=== PATIENT | female | born 1990 | race Caucasian/White ===

== ENCOUNTER 2016-12-20 11:50 | Emergency (ER) | payer SELFPAY ==
[2016-12-20 12:05] VITALS: BP 94/55
[2016-12-20] MEDS ORDERED: BENZONATATE 100 MG CAPSULE PO ONE (12:33)
--- NOTE | 2016-12-20 12:36 | ER Document Report ---
HPI - HPI Patient complains to provider of: Toothache Onset: Other - see note Pain Level: 3 Associated Symptoms: Headache. denies: Allergy/hay fever, Body/muscle aches, Chest pain, Chills, Nonproductive cough, Productive cough, Diarrhea, Drooling, Earache, Fever, Hoarseness, Hurts to breath, Leg swelling, Nausea, Vomiting, Rhinnorhea, Sinus pain/drainage, Shortness of breath, Slow to respond, Sore throat, Sweating, Weakness, Other Exacerbated by: Denies Relieved by: Denies - otc without any help Similar symptoms previously: Yes Recently seen / treated by doctor: No Notes: Patient with a history of poor dentition comes the ED complaining of right upper tooth pain 1 month, but worsening since this morning. Patient states that she also has a headache because of the dental pain. Patient states that the pain does not radiate otherwise. She still eating and drinking without any difficulties. Patient states that she does have dentures as well. Patient is scheduled in December for a dental appointment. Patient admits to smoking but denies any other illicit drugs. Denies any past medical history otherwise. Denies any . - ROS Notes: REVIEW OF SYSTEMS: CONSTITUTIONAL : Denies fever, chills, or sweats. Denies recent illness. EENT: Denies eye, ear, throat, pain or symptoms. Denies nasal or sinus congestion or discharge. Denies throat, tongue, or mouth swelling or difficulty swallowing. SEE HPI. CARDIOVASCULAR: Denies chest pain. Denies palpitations or racing or irregular heart beat. Denies ankle edema. RESPIRATORY: Denies cough, cold, or chest congestion. Denies shortness of breath, difficulty breathing, or wheezing. GASTROINTESTINAL: Denies abdominal pain or distention. Denies nausea, vomiting , or diarrhea. Denies blood in vomitus, stools, or per rectum. Denies black, tarry stools. Denies constipation. GENITOURINARY: Denies difficulty urinating, painful urination, burning, frequency, blood in urine, or discharge. MUSCULOSKELETAL: Denies back or neck pain or stiffness. Denies joint pain or swelling. SKIN: Denies rash, lesions or sores. NEUROLOGICAL: Denies confusion or altered mental status. Denies passing out or loss of consciousness. Denies dizziness or lightheadedness. Denies headache. Denies weakness or paralysis or loss of use of either side. Denies problems with gait or speech. Denies sensory loss, numbness, or tingling. ALL OTHER SYSTEMS REVIEWED AND NEGATIVE. Dictation was performed using [employer] voice recognition software - REPRODUCTIVE Reproductive: DENIES: : - DERM Skin Color: Normal Past Medical History - Social History Smoking Status: Current Every Day Smoker Family History: Reviewed & Not Pertinent, Hypertension Neurological Medical History: Reports: Hx Seizures Renal/ Medical History: Reports: Hx Ectopic . Denies: Hx Peritoneal Dialysis Psychiatric Medical History: Reports: Hx Anxiety, Hx Bipolar Disorder, Hx Depression Past Surgical History: Reports: Hx Abdominal Surgery - left tube removed, tubal pregancy, Hx Gynecologic Surgery - ectopic , LEFT SALPINGECTOMY, Hx Tubal Ligation. Denies: Hx Hysterectomy - Immunizations Immunizations up to date: No Hx Diphtheria, Pertussis, Tetanus Vaccination: Yes - 2012 Vertical Provider Document - CONSTITUTIONAL Agree With Documented VS: Yes Notes: PHYSICAL EXAMINATION: GENERAL: Well-appearing, well-nourished and in no acute distress. HEAD: Atraumatic, normocephalic. EYES: Pupils equal round and reactive to light, extraocular movements intact, sclera anicteric, conjunctiva are normal. ENT: EAC clear b/l. TM's intact b/l without erythema, fluid, or perforation. Nares patent and without discharge. oropharynx clear without exudates. No tonsilar hypertrophy or erythema. Moist mucous membranes. No sinus tenderness. Uvula midline. No palatine shift. No tongue protrusion Mouth: + denture placement. Mild gingivitis to the rt #4 tooth without obvious abscess or discharge. No ludwigs. NECK: Normal range of motion, supple without lymphadenopathy. No rigidity/ tenderness. LUNGS: Breath sounds clear to auscultation bilaterally and equal. No wheezes rales or rhonchi. HEART: Regular rate and rhythm without murmurs, rubs, gallops. NEUROLOGICAL: Cranial nerves grossly intact. Normal speech, normal gait. Normal sensory, motor exams PSYCH: Normal mood, normal affect. SKIN: Warm, Dry, normal turgor, no rashes or lesions noted. - INFECTION CONTROL TRAVEL OUTSIDE OF THE [place] IN LAST 30 DAYS: No - RESPIRATORY O2 Sat by Pulse Oximetry: 97 Course - Re-evaluation Re-evalutation: 12/20/16 12:45 Patient is an afebrile, well-hydrated, 26-year-old female presents the ED with dental pain to #4. Vitals are stable. PE otherwise unremarkable. Patient does have denture placement. Low suspicion for any retropharyngeal/ peritonsillar abscess, meningitis, intracranial hemorrhage, airway compromise, Terry's, acute glaucoma, temporal arteritis, ischemic stroke, or fracture at this time. Patient is aware that his condition can change from initial presentation and that he needs to monitor symptoms closely for any acute changes. Tessalon Perles was punctured and squeezed over the tooth providing some pain relief. Patient declined a dental block. I will send her home with clindamycin. Patient is scheduled with a dentist in December which she is supposed to keep the appointment of. Recheck with her PCM in 2-3 days. Return to the ED with any worsening/concerning symptoms otherwise as reviewed in discharge. Patient is in agreement. - Vital Signs Vital signs: Temp Pulse Resp BP Pulse Ox 98.1 F 78 18 94/55 L 97 12/20/16 12:03 12/20/16 12:03 12/20/16 12:03 12/20/16 12:03 12/20/16 12:03 Discharge - Discharge Clinical Impression: Toothache Condition: Stable Disposition: HOME, SELF-CARE Instructions: [facility], Clindamycin ([facility]), Toothache ([facility]) Additional Instructions: Gem and floss twice daily Maintain fluid intake Take antibiotics as directed Use tessalon as directed Mouthwash, salt water gargles, peroxide rinse as needed Tylenol/ibuprofen as needed Recheck with PCM this week Call today/tomorrow and schedule an appointment with your dentist for further evaluation Return to the ED with any worsening symptoms and/or development of fever, headache, facial swelling, swelling of lips/tongue/throat, trouble swallowing, drooling, hoarseness, neck pain/stiffness, chest pain, palpitations, syncope, shortness of breath, trouble breathing, abdominal pain, n/v/d, numbness/tingling , or other worsening symptoms that are concerning to you. Prescriptions: Benzonatate [Tessalon Perle 100 mg Capsule] 100 mg PO Q8HP PRN #10 cap PRN Reason: Forms: Smoking Cessation Education Referrals: [facility] [Provider Group] - Follow up as needed [facility] [Provider Group] - Follow up as needed
== END 2016-12-20 12:50 | disposition home or self-care (01) ==
LOC: ER 11:50
DX: K05.10 Chronic gingivitis, plaque induced (principal); K08.89 Other specified disorders of teeth and supporting structures; R51 Headache; F17.200 Nicotine dependence, unspecified, uncomplicated
CPT/HCPCS: 99282

== ENCOUNTER → 2017-08-29 | Outpatient (CLI) | payer SELFPAY ==
--- NOTE | 2017-08-29 14:40 | RADIOLOGY REPORT (SQ) ---
EXAM DESCRIPTION: U/S OB TRANSVAGINAL W/O DOP COMPLETED DATE/TIME: 08/29/2017 1:46 pm REASON FOR STUDY: ENCOUNTER FOR SUPERVISION OF OTHER NORMAL , FIRST TRIMESTER Z34.81 ENCOU NTER FOR SUPRVSN OF NORMAL , FIRST TRIM COMPARISON: No previous this TECHNIQUE: Endovaginal static and realtime grayscale images acquired of the pelvis. Additional selec alfredo spectral and color Doppler images recorded. All images stored on PACs. bHCG: Not available LIMITATIONS: None. FINDINGS: FETUS: Living intrauterine . EGA: 8 weeks 1 day YVONNE: 04/09/2018 FHR: 163 beats per minute. SUBCHORIONIC BLEED: Yes SIZE OF BLEED: 1.4 x 0.6 cm in size. UTERUS: No masses. No anomalies. Uterus is 9 x 7 x 6 cm in size CERVICAL LENGTH: Closed, 3.4 cm in length RIGHT ADNEXA: Normal ovary with normal vascular flow. Right ovary 3.4 x 2.2 x 1.7 cm in size. No adnexal free fluid. No adnexal masses. LEFT ADNEXA: Normal ovary with normal vascular flow. Left ovary a 2.6 x 2.2 x 1.5 cm in size with a 1.8 cm corpus luteal cyst. No adnexal free fluid. No adnexal masses. FREE FLUID: None. OTHER: No other significant finding. IMPRESSION: LIVING INTRAUTERINE . EGA 8 weeks 1 day. Very small subchorionic hemorrhage. Left ovary corpus luteal cyst. Trimester of : First - 0 to 13 weeks. TECHNICAL DOCUMENTATION: JOB ID: [id number] [employer]- All Rights Reserved Reading location - IP/workstation name: [facility]
== END ==
LOC: RAD 13:00
PROVIDERS: ATTEND Nurse Practitioner Women's Health
DX: O34.81 Maternal care for other abnormalities of pelvic organs, first trimester (principal); N83.12 Corpus luteum cyst of left ovary; Z3A.08 8 weeks gestation of pregnancy
CPT/HCPCS: 76817

== ENCOUNTER 2017-12-06 08:31 | Outpatient (CLI) | payer MEDICAID ==
[2017-12-06 10:00] LABS: APPEARANCE,URINE SLIGHTLY-CLOUDY; BILIRUBIN,URINE NEGATIVE (NEGATIVE); GLUCOSE, URINE NEGATIVE (NEGATIVE); KETONES,URINE 20 mg/dL (NEGATIVE); LEUKOCYTE ESTERASE,URINE MODERATE (NEGATIVE); NITRITE,URINE NEGATIVE (NEGATIVE); PROTEIN,URINE 30 mg/dL (NEGATIVE); URINE SPECIFIC GRAVITY 1.026
[2017-12-06 10:01] LABS: COLOR,URINE YELLOW
[2017-12-06 10:13] LABS: URINE BARBITURATES SCREEN NEGATIVE; URINE COCAINE SCREEN NEGATIVE; URINE METHADONE SCREEN NEGATIVE; URINE PHENCYCLIDINE SCREEN NEGATIVE
[2017-12-06 10:22] LABS: URINE AMPHETAMINES SCREEN UNCONFIRMED POSITIVE; URINE BENZODIAZEPINES SCREEN UNCONFIRMED POSITIVE; URINE MARIJUANA (THC) SCREEN UNCONFIRMED POSITIVE
[2017-12-06 10:31] LABS: T.VAGINALIS (WET MOUNT) NO TRICHOMONAS SEEN
[2017-12-06 10:32] LABS: BACTERIA (WET MOUNT) 3+ BACTERIA SEEN; EPITHELIALS (WET MOUNT) 4+ EPITHELIALS SEEN; RBCS (WET MOUNT) FEW RBCS SEEN; WBCS (WET MOUNT) 2+ WBCS SEEN; YEAST (WET MOUNT) YEAST SEEN
[2017-12-06 11:48] LABS: CHLAM PCR NOT DETECTED (NOT DETECT); GON PCR NOT DETECTED (NOT DETECT)
== END 2017-12-06 10:00 | disposition left against medical advice (07) ==
LOC: LC 08:31
PROVIDERS: ATTEND Student in an Organized Health Care Education/Training Program
PROC: 4A1HXCZ Monitoring of Products of Conception, Cardiac Rate, External Approach (ICD-10-PCS; principal; 2017-12-06)
DX: O46.92 Antepartum hemorrhage, unspecified, second trimester (principal); O99.332 Smoking (tobacco) complicating pregnancy, second trimester; Z3A.22 22 weeks gestation of pregnancy
CPT/HCPCS: 59899; 87086; 87210; 81001; 80307 ×2; 87491; 87591; 80361; G0480 ×5

== ENCOUNTER 2018-03-30 21:10 | Inpatient (IN) | payer MEDICAID ==
[2018-03-30 21:56] LABS: BILIRUBIN,URINE NEGATIVE (NEGATIVE); GLUCOSE, URINE NEGATIVE (NEGATIVE); KETONES,URINE NEGATIVE (NEGATIVE); LEUKOCYTE ESTERASE,URINE LARGE (NEGATIVE); NITRITE,URINE NEGATIVE (NEGATIVE); PROTEIN,URINE 30 mg/dL (NEGATIVE); URINE SPECIFIC GRAVITY 1.024
[2018-03-30 21:59] LABS: APPEARANCE,URINE CLOUDY; COLOR,URINE YELLOW
[2018-03-30 22:21] LABS: URINE AMPHETAMINES SCREEN NEGATIVE; URINE BARBITURATES SCREEN NEGATIVE; URINE COCAINE SCREEN NEGATIVE; URINE METHADONE SCREEN NEGATIVE; URINE PHENCYCLIDINE SCREEN NEGATIVE
[2018-03-30 22:22] LABS: URINE BENZODIAZEPINES SCREEN UNCONFIRMED POSITIVE; URINE MARIJUANA (THC) SCREEN UNCONFIRMED POSITIVE
[2018-03-30] MEDS ORDERED: MISOPROSTOL 0.2 MG TABLET ONE (22:48)
[2018-03-30] MEDS ORDERED: CLINDAMYCIN 900 MG/D5W RTU 900 MG/50 ML RTUPB IV ONE (22:48)
[2018-03-30] MEDS ORDERED: CITRIC ACID/SODIUM CITRATE ORAL SOLN 15 ML UDCUP ONE (22:48)
[2018-03-30] MEDS ORDERED: OXYTOCIN 10 UNIT/ML VIAL ONE (23:04)
[2018-03-30] MEDS ORDERED: FENTANYL CITRATE INJ/PF 100 MCG/2 ML AMPUL ONE ×2 (23:04→23:06)
[2018-03-30] MEDS ORDERED: EPHEDRINE SULFATE INJ 50 MG/1 ML AMPULE ONE (23:04)
[2018-03-30] MEDS ORDERED: MIDAZOLAM 2 MG/2 ML INJ ONE ×2 (23:05→23:06)
[2018-03-30] MEDS ORDERED: OXYTOCIN/NORMAL SALINE 0 UNIT/0 ML RTUINJ ONE (23:05)
[2018-03-30] MEDS ORDERED: ACETAMINOPHEN 1,000 MG/100 ML RTUPB IV ONE (23:05)
[2018-03-30] MEDS ORDERED: ONDANSETRON HCL INJ/PF 4 MG/2 ML SDV ONE (23:05)
[2018-03-30] MEDS ORDERED: DEXAMETHASONE SOD PHOSPHATE INJ 4 MG/1 ML VIAL ONE (23:06)
[2018-03-30 23:08] LABS: ABSOLUTE BASOPHILS # (AUTO) 0.1 10^3/uL (0.0-0.2); ABSOLUTE EOSINOPHILS # (AUTO) 0.3 10^3/uL (0.0-0.6); ABSOLUTE LYMPHOCYTES (AUTO) 2.2 10^3/uL (0.5-4.7); ABSOLUTE MONOCYTES (AUTO) 0.7 10^3/uL (0.1-1.4); ABSOLUTE NEUT (AUTO) 9.2 10^3/uL (1.7-8.2); BASOPHILS % (AUTO) 0.5 % (0-2); EOSINOPHILS % (AUTO) 2.3 % (0-6); HEMATOCRIT 33.6 % (36.0-47.0); HEMOGLOBIN 11.3 g/dL (12.0-15.5); LYMPHOCYTES % (AUTO) 17.4 % (13-45); MEAN CORPUSCULAR HEMOGLOBIN 29.1 pg (27.0-33.4); MEAN CORPUSCULAR HGB CONC 33.6 g/dL (32.0-36.0); MEAN CORPUSCULAR VOLUME 87 fl (80-97); MONOCYTES % (AUTO) 5.7 % (3-13); PLATELET COUNT 156 10^3/uL (150-450); RED BLOOD COUNT 3.88 10^6/uL (3.72-5.28); RED CELL DISTRIBUTION WIDTH 13.6 % (11.5-14.0); SEGMENTED NEUTROPHILS % (AUTO) 74.1 % (42-78); TOTAL CELLS COUNTED % (AUTO) 100 %; WHITE BLOOD COUNT 12.5 10^3/uL (4.0-10.5)
[2018-03-30] MEDS: RINGERS SOLUTION,LACTATED 1,000 ML IV PRN (23:12)
[2018-03-30] MEDS ORDERED: BUPIVACAINE HCL/DEX-WATER/PF 15 MG/2 ML AMPULE ONE (23:15)
[2018-03-31] MEDS ORDERED: MORPHINE SULFATE 10 MG/ML INJ ONE (01:08)
[2018-03-31] MEDS ORDERED: MEASLES,MUMPS&RUBELLA VACC/PF 0.5 ML VIAL SUBCUT PRN (01:23)
[2018-03-31] MEDS ORDERED: SIMETHICONE 80 MG TAB.CHEW PO PRN (01:23)
[2018-03-31] MEDS ORDERED: OXYTOCIN/NORMAL SALINE 20 UNIT/1,000 ML RTUINJ IV PRN (01:23)
[2018-03-31] MEDS ORDERED: ACETAMINOPHEN 1,000 MG/100 ML RTUPB IV PRN (01:23)
[2018-03-31] MEDS ORDERED: DIPH/PERTUSS(ACELL)/TETANUS VAC/PF 0.5 ML SYR (>=10YO) IM PRN (01:23)
[2018-03-31] MEDS ORDERED: PROMETHAZINE HCL INJ 25 MG/1 ML VIAL IV PRN (01:23)
[2018-03-31] MEDS ORDERED: ACETAMINOPHEN 325 MG TABLET PO PRN (01:23)
[2018-03-31] MEDS ORDERED: MORPHINE SULFATE 10 MG/ML INJ IV PRN (01:38)
--- NOTE | 2018-03-31 01:38 | Admission Physical ---
Datetime Report Generated by CPN: 03/31/2018 01:37 CURRENT ADMISSION Chief Complaint: Uterine Contractions Indication for Induction: Not Applicable Admit Impression : Term, Intrauterine ; Active Labor; Intact Membranes; Repeat Section; Tubal Ligation Admit Plan: Admit to Unit; Initiate Section Protocol ALLERGIES Medication Allergies: Yes Medication Allergies: nalbuphine HCl (03/30/2018); ketorolac tromethamine (03/30/2018); cephalexin monohydrate (03/30/2018); hydrocodone (03/30/2018); tramadol (03/30/2018) Latex: No Latex Allergies Food Allergies: tramadol, toradol, keflex, nubain Environmental Allergies: bee pollen OBSTETRICAL HISTORY EDC: 04/09/2018 00:00 Para: 1 Term: 1 : 0 Ectopic: 1 Livin Cesareans: 1 VBACs: 0 Multiple Births: 0 Gestational Diabetes: No Rh Sensitization: No Incompetent Cervix: No FRED: No Infertility: No Uterine Anomaly: No IUGR: No Hx Previous C/S: Yes Macrosomia: No Hx Loss/Stillborn: No PIH: No Hx : No Placenta Previa/Abruption: No PTL/PROM: No Post Hemorrhage: No Current Procedures: Ultrasound SEE RECORDS Alcohol: No Alcohol Comments: not since May Marijuana : Yes Marijuana Comments: pt states not since May, positive drug screen 12/06 Cocaine: No Other Illicit Drugs: Yes Illicit Drug Comments: positive drug screen for Benzo, Amphetamines, and opiates 12/06 Cigarettes: Current Everyday Smoker. [id number] Cigarette Frequency: < 5 per day Advised to Stop: Yes MEDICAL HISTORY Diabetes: No Blood Transfusion: No Significant Family History: Yes Medical History Comments: Drug abuse, Hep C INFECTIOUS HISTORY Gonorrhea: No Genital Herpes: No Chlamydia: No Tuberculosis: No Syphilis: No Hepatitis: Yes HIV/AIDS Exposure: No Rash or Viral Illness: No HPV: No Infectious History Comments: HEP C PHYSICAL EXAM General: Normal HEENT: Normal Neurologic: Normal Heart: Normal Lungs: Normal Abdomen: Normal Genitourinary Exam: Normal Extremities: Normal Pelvic Type: Adequate Vital Signs: Reviewed; Within Normal Limits VAGINAL EXAM Dilatation: 5 Effacement: 100 Station: -1 Contraction Comments: q 3-6 min MEMBRANES Membranes: Intact FETUS A EGA: 38.5 Monitoring: External US FHR- Baseline: 130 Variability: Moderate 6-25bpm Accelerations: 15X15 Decelerations: None FHR Category: Category I Presentation: Vertex Admit Comment: Pt has h/o prior and was krystina for RCS on next week. She is currently on Subutex for h/o polysubstance abuse, including heroin, MJ, benzos, opioids. PLANS FOR LABOR AND DELIVERY Feeding Preference: Formula Benefit of Breast Feed Discussed: Yes INFORMED CONSENT Signature: with User ID: [email or web address]
[2018-03-31] MEDS: RINGERS SOLUTION,LACTATED 1,000 ML IV PRN (02:22)
[2018-03-31] MEDS ORDERED: IBUPROFEN 800 MG TABLET PO PRN (05:21)
[2018-03-31] MEDS: OXYCODONE HCL IR 5 MG TABLET PO PRN ×4 (05:40→18:37)
[2018-03-31] MEDS: OXYCODONE-ACETAMINOPHEN 5-325 MG TABLET PO PRN ×5 (05:41→22:36)
[2018-03-31] MEDS: DOCUSATE SODIUM 100 MG CAPSULE PO SCH ×2 (09:33→17:54)
[2018-03-31] MEDS: PRENATAL VITAMIN W DHA CAPSULE PO SCH (09:33)
[2018-03-31] MEDS ORDERED: ZOLPIDEM TARTRATE 5 MG TABLET PO PRN (21:04)
[2018-04-01] MEDS: OXYCODONE HCL IR 5 MG TABLET PO PRN ×3 (02:44→12:45)
[2018-04-01] MEDS: OXYCODONE-ACETAMINOPHEN 5-325 MG TABLET PO PRN ×3 (02:44→12:45)
[2018-04-01 07:40] LABS: HEMATOCRIT 32.5 % (36.0-47.0); HEMOGLOBIN 11.2 g/dL (12.0-15.5); MEAN CORPUSCULAR HEMOGLOBIN 29.6 pg (27.0-33.4); MEAN CORPUSCULAR HGB CONC 34.3 g/dL (32.0-36.0); MEAN CORPUSCULAR VOLUME 86 fl (80-97); PLATELET COUNT 167 10^3/uL (150-450); RED BLOOD COUNT 3.77 10^6/uL (3.72-5.28); RED CELL DISTRIBUTION WIDTH 13.6 % (11.5-14.0); WHITE BLOOD COUNT 9.4 10^3/uL (4.0-10.5)
[2018-04-01] MEDS: PRENATAL VITAMIN W DHA CAPSULE PO SCH (09:20)
[2018-04-01] MEDS: DOCUSATE SODIUM 100 MG CAPSULE PO SCH (09:20)
[2018-04-01 12:31] VITALS: BP 138/88
--- NOTE | 2018-04-01 12:52 | PDOC PROGRESS REPORT ---
Subjective-OB Progress Note for:: 04/01/18 Subjective: complaining of pain at incision-RN notified, +passing gas Physical Exam (OB) Vital Signs: Temp Pulse Resp BP Pulse Ox 98.7 F 100 18 138/88 H 97 04/01/18 12:25 04/01/18 12:25 04/01/18 12:25 04/01/18 12:25 04/01/18 12:25 Intake & Output 03/31/18 04/01/18 04/02/18 06:59 06:59 06:59 Intake Total 1480 Output Total 1650 Balance -170 Weight - Dressing Removed: Yes Incision: Open Closure Type: Surgical Glue - Abdomen Description: Tender, Soft, Round Hernia Present: No Fundal Description: Firm, Midline Fundal Height: u/u - u/2 - Abdominal Inspection: Normal - Extremities Lower extremities: Mariluz's sign - neg Calf: Normal, Nontender Objective-Diagnostic Laboratory: 04/01/18 07:09 04/01/18 07:09 WBC 9.4 RBC 3.77 Hgb 11.2 L Hct 32.5 L MCV 86 MCH 29.6 MCHC 34.3 RDW 13.6 Plt Count 167 Assessment and Plan(PN) - Assessment and Plan (1) Delivery by emergency caesarean section Is this a current diagnosis for this admission?: Yes - Time Spent with Patient Time with patient: Less than 15 minutes Medications reviewed and adjusted accordingly: Yes - Disposition Anticipated Discharge: Home Within: within 24 hours
[2018-04-04 14:40] LABS: BENZODIAZEPINE CONFIRMATION UR Negative (Cutoff=300)
[2018-04-05 10:55] LABS: CANNABINOID CONFIRMATION UR Positive (.)
--- NOTE | 2018-04-09 15:34 | PDOC DISCHARGE SUMMARY ---
Final Diagnosis Discharge Date: 04/01/18 - Final Diagnosis (1) Delivery by emergency caesarean section Is this a current diagnosis for this admission?: Yes (2) Drug abuse Is this a current diagnosis for this admission?: Yes (3) Left against medical advice Is this a current diagnosis for this admission?: Yes Discharge Data - Discharge Medication Home Medications: Buprenorphine HCl [Subutex 8 mg Sublingual Tablet] 8 mg PO BID 03/30/18 Ondansetron HCl [Zofran 8 mg Tablet] 8 mg PO DAILY 03/30/18 - Diagnosis Test Laboratory: Temp Pulse Resp BP Pulse Ox 98.7 F 100 18 138/88 H 97 04/01/18 12:25 04/01/18 12:25 04/01/18 12:25 04/01/18 12:25 04/01/18 12:25 03/30/18 03/30/18 04/01/18 21:30 22:40 07:09 RBC 3.88 3.77 Hgb 11.3 L 11.2 L Hct 33.6 L 32.5 L Urine Opiates Screen NEGATIVE - Discharge information/Instructions Discharge Activity: Balance Activity w/Rest, Pelvic Rest Discharge Diet: Regular Disposition: AGAINST MEDICAL ADVICE Follow up with: [facility] in: 1, Weeks - information not conveyed to pt. as reported by RN to Dr Thomson, pt left AMA due to being upset that the baby was in the nursery for drug withdrawal
--- NOTE | 2018-05-13 18:17 | OPERATIVE REPORT E ---
Operative Report NAME: VIOLETTA MONROE : 1990 AGE: 28Y DATE OF SURGERY: ROOM: 222 PREOPERATIVE DIAGNOSES: 1. Previous section, labor. 2. Desires sterility. POSTOPERATIVE DIAGNOSES: 1. Previous section, labor. 2. Desires sterility. PROCEDURES: 1. Repeat . 2. Right tubal ligation. SURGEON: MARY LOU MADRID M.D. INDICATIONS: Patient presents, she is a G2, P1-0-0-1 at 38 and 5/7 weeks gestation who has a history of a prior section and removal of her left tube, who presents in labor at 5 cm. The patient had a repeat section scheduled for next week. Decision was made that since she is in a labor with a prior to deliver via repeat section. Risks, benefits, indications, and alternatives of the procedure were explained and informed consent was obtained. DESCRIPTION OF PROCEDURE: The patient was taken to the operating room with IV fluids running. She was prepped and draped in the usual sterile fashion with a leftward tilt. A Pfannenstiel skin incision was made and carried down to the underlying fascia with a knife. The fascia was nicked in the midline. The incision was extended laterally. The superior aspect of the fascia was grasped with Wayne clamps and the underlying rectus muscles were dissected off. This was repeated on the inferior fascia. The rectus muscles were divided in the midline. The opening was extended. The bladder blade was placed. The vesicouterine peritoneum was grasped with pickups and entered sharply. The bladder flap was created digitally. The bladder blade was replaced. The hysterotomy incision was made and carried down to the underlying membranes. The membranes were ruptured. The 's head was grasped. The opening was extended. The infant's head was grasped and was delivered atraumatically through the hysterotomy incision. The anterior and posterior shoulders were delivered followed by the remainder of the body. The cord was clamped x2 and cut. The infant was handed to the awaiting banking paralegal. The placenta was expressed. The uterus was exteriorized and cleared of all clot and debris. The hysterotomy incision was repaired with a #0 Vicryl in a running locked fashion. Attention was turned to the patient's right tube where avascular run in the mesosalpinx was grasped with [place]. An opening in the mesosalpinx was made using Bovie cautery. Two pieces of plain gut suture were passed through the opening and the tube was tied 3 cm lateral to the uterine cornua. The tube was cut. The cut edges were made hemostatic. The uterus was returned to the abdomen. The abdomen gutters were irrigated with copious amounts of warm normal saline. The peritoneum was closed with a #2-0 Vicryl. The fascia was closed with a #0 Maxon. The skin was closed with jesse. The patient tolerated the procedure well. Sponge, needle, and instrument counts were correct x2, and the patient was taken to the recovery room in stable condition. DICTATING PHYSICIAN: MARY LOU MADRID M.D. [id number] PHY#: [id number] ID: [id number] JOB#: [id number] ACCT: [id number] cc:MARY LOU MADRID M.D. >
== END 2018-04-01 15:47 | disposition left against medical advice (07) | DRG 784 ==
LOC: LC 21:10 → LR 22:05 → 2S 03-31 02:04
PROVIDERS: ADMIT Obstetrics & Gynecology; ATTEND Obstetrics & Gynecology
PROC: 10D00Z1 Extraction of Products of Conception, Low, Open Approach (ICD-10-PCS; principal; 2018-03-31)
PROC: 0UB50ZZ Excision of Right Fallopian Tube, Open Approach (ICD-10-PCS; 2018-03-31)
PROC: 4A1HXCZ Monitoring of Products of Conception, Cardiac Rate, External Approach (ICD-10-PCS; 2018-03-31)
DX: O34.211 Maternal care for low transverse scar from previous cesarean delivery (principal); Z30.2 Encounter for sterilization; O99.324 Drug use complicating childbirth; F13.20 Sedative, hypnotic or anxiolytic dependence, uncomplicated; O98.42 Viral hepatitis complicating childbirth; F11.10 Opioid abuse, uncomplicated; F17.210 Nicotine dependence, cigarettes, uncomplicated; F15.10 Other stimulant abuse, uncomplicated; F12.10 Cannabis abuse, uncomplicated; O99.334 Smoking (tobacco) complicating childbirth; Z37.0 Single live birth; Z3A.38 38 weeks gestation of pregnancy; Z90.79 Acquired absence of other genital organ(s); B19.20 Unspecified viral hepatitis C without hepatic coma
CPT/HCPCS: 1961; 36415; 80307; 80349; 81005; 85025; 85027; 86592; 86850; 86900; 86901; 88302; 88307; 94799; G0480; J0131; J1100; J2250; J2270; J2405; J2590; J3010; J3490; J7120